=== PATIENT | male | born 1955 | race Two or more races ===

== ENCOUNTER → 2024-09-01 | Outpatient (CLI) | payer OTHER, MEDICARE, SELFPAY ==
[2024-09-01 08:37] LABS: Basophils % (Auto) 1 % (0-2.5); Eosinophils # (Auto) 0.2 Thou/mm3 (0.0-0.5); Eosinophils % (Auto) 2 % (0-10); Hematocrit 50.8 % (41.0-53.0); Hemoglobin 16.5 g/dL (13.5-16.0); Immature Granulocytes % (Auto) 0 % (0-0); Immature Granulocytes Auto 0.02 Thou/mm3 (0.00-0.00); Lymphocytes # (Auto) 1.8 Thou/mm3 (1.0-4.8); Lymphocytes % (Auto) 28 % (10-50); Mean Corpuscular HGB Conc 32.5 g/dl (31.0-37.0); Mean Corpuscular Hemoglobin 27.5 pg (25.0-35.0); Mean Corpuscular Volume 85 fL (80-100); Monocytes # (Auto) 0.5 Thou/mm3 (0.0-0.8); Monocytes % (Auto) 8 % (0-12); Neutrophils # (Auto) 4.1 Thou/mm3 (1.8-7.7); Neutrophils % (Auto) 61 % (37-80); Nucleated Red Blood Cell % 0 /100 WBC (0); Platelet Count 215 Thou/mm3 (140-440); RDW Standard Deviation 44.1 fL (35.1-43.9); Red Blood Count 6.01 Miln/mm3 (4.50-5.90); White Blood Count 6.6 Thou/mm3 (3.8-10.6)
[2024-09-01 08:46] LABS: Glucose Estimated Average 114 mg/dL (80-131); Hemoglobin A1C 5.6 % Hgb (4.8-6.0)
[2024-09-01 09:10] LABS: Alanine Aminotransferase 12 U/L (10-49); Albumin, Serum 4.4 gm/dL (3.4-4.8); Albumin/Globulin Ratio 1.8 (1.2-2.2); Alkaline Phosphatase 83 U/L (46-116); Anion Gap 7 (7-16); Aspartate Amino Transferase 27 U/L (0-34); BUN/Creatinine Ratio 12 Ratio (12-20); Bilirubin,Total 0.9 mg/dL (0.3-1.2); Blood Urea Nitrogen 13 mg/dL (9-23); Calcium 9.7 mg/dL (8.3-10.6); Calcium (Corrected) 9.7 mg/dL (8.5-10.1); Carbon Dioxide 27.7 mMol/L (20.0-31.0); Cardiac Risk Estimate 3.5 RATIO (4.0-6.7); Chloride 106 mMol/L (98-107); Cholesterol 170 mg/dL (132-200); Creatinine (Component) 1.1 mg/dL (0.6-1.3); Globulin 2.4 gm/dL (2.3-3.5); Glucose 96 mg/dL (74-106); HDL Cholesterol 49 mg/dL (40-60); LDL Cholesterol,Calculated 68 mg/dL (0-130); Osmolality,Calculated 281 (275-295); Potassium 4.4 mMol/L (3.4-5.1); Sodium 141 mMol/L (136-145); Total Protein 6.8 gm/dL (5.7-8.2); Triglycerides 263 mg/dL (30-150); Uric Acid 3.8 mg/dL (3.7-9.2); eGFR > 60 See Note
[2024-09-01 09:25] LABS: Carcinoembryonic Antigen 1.1 ng/mL (0.0-5.0); Folate > 24.00 ng/mL (>5.38); Vitamin B12 676 pg/mL (211-911)
[2024-09-01 09:32] LABS: Creatinine MALB Rnd Ur 175 mg/dL (30-125); Microalbumin Creat Ratio 9 mg/gCrea (<30); Microalbumin, Random Urine 16 mg/L (0-300)
[2024-09-01 09:40] LABS: Ferritin 76 ng/mL (10.5-307.3); Total Iron Binding Capacity 328 mcg/dL (250-425)
[2024-09-01 09:52] LABS: Iron 121 mcg/dL (65-175)
[2024-09-21 09:09] LABS: Direct LDL* 95 mg/dL (<100); Testosterone,Total* 346 ng/dL (250-1100)
== END | disposition home or self-care (01) ==
LOC: COPL 08:03
PROVIDERS: PCP Internal Medicine; Referring Provider Specialist; Visit Provider Internal Medicine Hematology
DX: I10 Essential (primary) hypertension (principal); E11.42 Type 2 diabetes mellitus with diabetic polyneuropathy; I48.0 Paroxysmal atrial fibrillation; C18.1 Malignant neoplasm of appendix; E66.9 Obesity, unspecified; M06.9 Rheumatoid arthritis, unspecified; M10.9 Gout, unspecified; M54.50 Low back pain, unspecified; E29.1 Testicular hypofunction
CPT/HCPCS: 36415; 80053; 80061; 82043; 82306; 82378; 82570; 82607; 82728; 82746; 83036; 83540; 83550; 83721; 84403; 84550; 85025

== ENCOUNTER → 2025-02-19 | Outpatient (CLI) | payer OTHER, MEDICARE, SELFPAY ==
--- NOTE | 2025-02-19 15:26 | XR_ITS ---
Examination: AP pelvis single view TECHNIQUE: AP pelvis single view Date and time: February 19, 2025, 1557 hours Comparison January 27, 2016 INDICATIONS: Sacroiliac joint dysfunction FINDINGS: Mild right and moderate left sclerosis about the SI joints Minimal right hip osteoarthritis Moderate left hip osteoarthritis No hip or pelvic fracture IMPRESSION: Mild right and moderate left sacroiliitis Minimal right hip osteoarthritis Moderate left hip osteoarthritis As clinically warranted the SI joints are amenable to CT-guided steroid injection
--- NOTE | 2025-02-19 15:26 | XR_ITS ---
Examination: Left elbow 3 views Technique: Elbow AP, oblique, lateral 3 views Exam date and time: February 19, 2025 1545 hours INDICATIONS: Elbow pain months, diagnosis rheumatoid arthritis FINDINGS: No fracture or dislocation No erosive arthritis IMPRESSION: No fracture or dislocation. Minimal spurring of the coronoid process of the ulna No erosive arthritis
--- NOTE | 2025-02-19 15:26 | XR_ITS ---
Shoulder bilateral, 6 views Technique: Shoulder AP internal rotation, AP external rotation, Y view shoulder Exam date and time :February 19, 2025 at 1545 hours INDICATIONS: Diagnosis rheumatoid arthritis FINDINGS: Mild osteopenia Moderate to advanced narrowing left glenohumeral joint Mild to moderate narrowing right glenohumeral joint Bilateral mild arthritic change acromioclavicular joints No calcific tendinitis No shoulder fractures or dislocations IMPRESSION: Mild osteopenia Moderate to advanced narrowing left glenohumeral joint Mild to moderate narrowing right glenohumeral joint
--- NOTE | 2025-02-19 15:31 | XR_ITS ---
Examination: Sacroiliac joints 4 views TECHNIQUE: AP, MIR, AZERI, AP Carrillo view Date and time: February 19, 2025 1538 hours INDICATIONS: Diagnosis sacroiliac joint dysfunction FINDINGS: Mild sclerosis and erosions right sacroiliac joint Moderate sclerosis and erosions left sacroiliac joint No diastases SI joints Partial visualization transpedicular fusion with disc spacer L4-L5 IMPRESSION: Mild right moderate left sacroiliitis
== END | disposition home or self-care (01) ==
PROVIDERS: PCP Internal Medicine; Referring Provider Specialist; Visit Provider Specialist
DX: M46.1 Sacroiliitis, not elsewhere classified (principal); M16.0 Bilateral primary osteoarthritis of hip; M85.819 Other specified disorders of bone density and structure, unspecified shoulder; M25.812 Other specified joint disorders, left shoulder; M25.811 Other specified joint disorders, right shoulder
CPT/HCPCS: 72170; 72202; 73030; 73080

== ENCOUNTER → 2025-02-28 | Outpatient (CLI) | payer OTHER, MEDICARE, SELFPAY ==
[2025-02-28 08:17] LABS: Basophils % (Auto) 1 % (0-2.5); Eosinophils # (Auto) 0.1 Thou/mm3 (0.0-0.5); Eosinophils % (Auto) 1 % (0-10); Hematocrit 54.2 % (41.0-53.0); Hemoglobin 17.8 g/dL (13.5-16.0); Immature Granulocytes % (Auto) 0 % (0-0); Immature Granulocytes Auto 0.02 Thou/mm3 (0.00-0.00); Lymphocytes # (Auto) 1.6 Thou/mm3 (1.0-4.8); Lymphocytes % (Auto) 18 % (10-50); Mean Corpuscular HGB Conc 32.8 g/dl (31.0-37.0); Mean Corpuscular Hemoglobin 27.1 pg (25.0-35.0); Mean Corpuscular Volume 82 fL (80-100); Monocytes # (Auto) 0.7 Thou/mm3 (0.0-0.8); Monocytes % (Auto) 8 % (0-12); Neutrophils # (Auto) 6.2 Thou/mm3 (1.8-7.7); Neutrophils % (Auto) 72 % (37-80); Nucleated Red Blood Cell % 0 /100 WBC (0); Platelet Count 276 Thou/mm3 (140-440); RDW Standard Deviation 42.7 fL (35.1-43.9); Red Blood Count 6.58 Miln/mm3 (4.50-5.90); White Blood Count 8.6 Thou/mm3 (3.8-10.6)
[2025-02-28 08:25] LABS: Glucose Estimated Average 103 mg/dL (80-131); Hemoglobin A1C 5.2 % Hgb (4.8-6.0)
[2025-02-28 08:36] LABS: Folate 17.99 ng/mL (>5.38); Vitamin B12 549 pg/mL (211-911)
[2025-02-28 08:37] LABS: Alanine Aminotransferase 10 U/L (10-49); Albumin, Serum 4.3 gm/dL (3.4-4.8); Albumin/Globulin Ratio 1.7 (1.2-2.2); Alkaline Phosphatase 77 U/L (46-116); Anion Gap 11 (7-16); BUN/Creatinine Ratio 14 Ratio (12-20); Bilirubin,Total 1.4 mg/dL (0.3-1.2); Blood Urea Nitrogen 15 mg/dL (9-23); C-Reactive Protein 0.5 mg/dL (0.0-0.9); Calcium 8.9 mg/dL (8.3-10.6); Calcium (Corrected) 8.9 mg/dL (8.5-10.1); Carbon Dioxide 25.3 mMol/L (20.0-31.0); Cardiac Risk Estimate 3.4 RATIO (4.0-6.7); Chloride 105 mMol/L (98-107); Cholesterol 144 mg/dL (132-200); Creatinine (Component) 1.1 mg/dL (0.6-1.3); Free T4 (Free Thyroxine) 1.29 ng/dL (0.89-1.76); Globulin 2.5 gm/dL (2.3-3.5); Glucose 100 mg/dL (74-106); HDL Cholesterol 42 mg/dL (40-60); LDL Cholesterol,Calculated 77 mg/dL (0-130); Osmolality,Calculated 282 (275-295); Potassium 4.6 mMol/L (3.4-5.1); Sodium 141 mMol/L (136-145); Thyroid Stimulating Hormone 2.01 uIU/mL (0.55-4.78); Total Protein 6.8 gm/dL (5.7-8.2); Triglycerides 126 mg/dL (30-150); eGFR > 60 See Note
[2025-02-28 09:13] LABS: Collection Type, Urine Clean Catch
[2025-02-28 09:39] LABS: Bilirubin,Urine Negative (Negative); Blood,Urine Trace (Negative); Clarity,Urine Clear (Clear/Hazy); Color,Urine Yellow (Lt Yel-Yel); Glucose, Urine 4+ (Negative); Ketones,Urine Trace (Negative); Leukocyte Esterase,Urine Negative (Negative); Nitrite,Urine Negative (Negative); PH,Urine 5.5 (5.0-7.0); Protein,Urine Negative (Neg - Trace); RBC,Urine 1 /hpf (0-3); Squamous Epithelial Cell,Urine < 1 /hpf (0-5); Urobilinogen,Urine Negative mg/dL (0.0-1.0); WBC,Urine < 1 /hpf (0-5)
[2025-02-28 09:44] LABS: Creatinine MALB Rnd Ur 116 mg/dL (30-125); Microalbumin Creat Ratio 6 mg/gCrea (<30); Microalbumin, Random Urine 7 mg/L (0-300)
[2025-02-28 15:24] LABS: RA Screen Positive (Negative)
[2025-03-05 07:14] LABS: CCP Antibody (IgG)* <16 Units
== END | disposition home or self-care (01) ==
PROVIDERS: PCP Specialist; Referring Provider Specialist; Visit Provider Internal Medicine
DX: I10 Essential (primary) hypertension (principal); E78.5 Hyperlipidemia, unspecified; G47.33 Obstructive sleep apnea (adult) (pediatric); I48.0 Paroxysmal atrial fibrillation; I25.10 Atherosclerotic heart disease of native coronary artery without angina pectoris; M06.9 Rheumatoid arthritis, unspecified; M10.9 Gout, unspecified; N40.1 Benign prostatic hyperplasia with lower urinary tract symptoms; E11.42 Type 2 diabetes mellitus with diabetic polyneuropathy; C18.1 Malignant neoplasm of appendix; E66.9 Obesity, unspecified
CPT/HCPCS: 36415; 80053; 80061; 81001; 82043; 82570; 82607; 82746; 83036; 84439; 84443; 85025; 86140; 86200; 86430; 86431

== ENCOUNTER → 2025-06-29 | Outpatient (CLI) | payer MEDICARE, SELFPAY ==
--- NOTE | 2025-06-29 16:45 | XR_ITS ---
EXAMINATION: Lumbar spine 7 views TECHNIQUE: AP, lateral, coned lateral lower lumbar spine, standing lateral flexion, standing lateral extension, RPO LPO lumbar spine 7 views Date and time: June 29, 2025, 164 hours, comparison 2008 INDICATIONS: Patient fell 10 days ago with injury of the lower back, lower back pain FINDINGS: Status post transpedicular lumbar fusion with disc spacers L3-S1 The disc spacer at the L3-L4 level projects 8 mm posterior to the L3 vertebral body Alignment of the vertebral bodies is satisfactory There is no significant range of motion between flexion and extension IMPRESSION: Status post lumbar fusion L3-S1 with satisfactory alignment The disc spacer at the L3-4 level projects 8 mm posterior to the L3 vertebral body
== END | disposition home or self-care (01) ==
PROVIDERS: PCP Surgery; Referring Provider Surgery; Visit Provider Surgery
DX: M43.27 Fusion of spine, lumbosacral region (principal); S39.92XA Unspecified injury of lower back, initial encounter; W19.XXXA Unspecified fall, initial encounter
CPT/HCPCS: 72114

== ENCOUNTER → 2025-08-30 | Outpatient (CLI) | payer MEDICARE, SELFPAY ==
[2025-08-30 08:47] LABS: Basophils # (Auto) 0.0 Thou/mm3 (0.0-0.2); Basophils % (Auto) 1 % (0-2.5); Eosinophils # (Auto) 0.1 Thou/mm3 (0.0-0.5); Eosinophils % (Auto) 2 % (0-10); Hematocrit 55.6 % (41.0-53.0); Hemoglobin 17.6 g/dL (13.5-16.0); Immature Granulocytes Auto 0.01 Thou/mm3 (0.00-0.00); Lymphocytes # (Auto) 1.7 Thou/mm3 (1.0-4.8); Lymphocytes % (Auto) 30 % (10-50); Mean Corpuscular HGB Conc 31.7 g/dl (31.0-37.0); Mean Corpuscular Hemoglobin 26.9 pg (25.0-35.0); Mean Corpuscular Volume 85 fL (80-100); Monocytes # (Auto) 0.5 Thou/mm3 (0.0-0.8); Monocytes % (Auto) 8 % (0-12); Neutrophils # (Auto) 3.4 Thou/mm3 (1.8-7.7); Neutrophils % (Auto) 59 % (37-80); Nucleated Red Blood Cell # 0.00 Thou/mm3 (0.00-0.00); Nucleated Red Blood Cell % 0 /100 WBC (0); Platelet Count 201 Thou/mm3 (140-440); RDW Standard Deviation 58.0 fL (35.1-43.9); Red Blood Count 6.55 Miln/mm3 (4.50-5.90); White Blood Count 5.7 Thou/mm3 (3.8-10.6)
[2025-08-30 08:52] LABS: Glucose Estimated Average 114 mg/dL (80-131); Hemoglobin A1C 5.6 % Hgb (4.8-6.0)
[2025-08-30 08:53] LABS: Creatinine MALB Rnd Ur 79 mg/dL (30-125); Microalbumin Creat Ratio 6 mg/gCrea (<30); Microalbumin, Random Urine 5 mg/L (0-300)
[2025-08-30 09:26] LABS: Sed Rate (ESR) 8 mm/hr (0-20)
[2025-08-30 09:29] LABS: Alanine Aminotransferase 13 U/L (10-49); Albumin, Serum 4.4 gm/dL (3.4-4.8); Albumin/Globulin Ratio 1.5 (1.2-2.2); Alkaline Phosphatase 73 U/L (46-116); Anion Gap 11 (7-16); Aspartate Amino Transferase 28 U/L (0-34); BUN/Creatinine Ratio 15 Ratio (12-20); Bilirubin,Total 0.7 mg/dL (0.3-1.2); Blood Urea Nitrogen 16 mg/dL (9-23); C-Reactive Protein < 0.5 mg/dL (0.0-0.9); Calcium 9.3 mg/dL (8.3-10.6); Calcium (Corrected) 9.3 mg/dL (8.5-10.1); Carbon Dioxide 27.7 mMol/L (20.0-31.0); Cardiac Risk Estimate 1.9 RATIO (4.0-6.7); Chloride 107 mMol/L (98-107); Cholesterol 103 mg/dL (132-200); Creatinine (Component) 1.1 mg/dL (0.6-1.3); Globulin 3.0 gm/dL (2.3-3.5); Glucose 104 mg/dL (74-106); HDL Cholesterol 55 mg/dL (40-60); LDL Cholesterol,Calculated 29 mg/dL (0-130); Osmolality,Calculated 291 (275-295); Potassium 4.4 mMol/L (3.4-5.1); Sodium 146 mMol/L (136-145); Total Protein 7.4 gm/dL (5.7-8.2); Triglycerides 97 mg/dL (30-150); Uric Acid 3.9 mg/dL (3.7-9.2); eGFR > 60 See Note
[2025-08-30 09:32] LABS: Hepatitis A Antibody IgM Non Reactive (Non React); Hepatitis B Core Antibody IgM Non Reactive (Non React); Hepatitis B Surface Antigen Non Reactive (Non React); Hepatitis C Antibody Non Reactive (Non React)
[2025-08-30 10:09] LABS: RA Screen Positive (Negative)
[2025-08-30 11:37] LABS: Rheumatoid Factor Titer 1:64
[2025-09-05 06:24] LABS: ANA Screen, IFA NEGATIVE (NEGATIVE); Testosterone,Total* 241 ng/dL (250-1100)
== END | disposition home or self-care (01) ==
PROVIDERS: PCP Internal Medicine; Referring Provider Specialist; Visit Provider Family Medicine
DX: M05.9 Rheumatoid arthritis with rheumatoid factor, unspecified (principal); M10.9 Gout, unspecified; E34.9 Endocrine disorder, unspecified; I48.19 Other persistent atrial fibrillation; Z11.59 Encounter for screening for other viral diseases; E11.9 Type 2 diabetes mellitus without complications
CPT/HCPCS: 36415; 80053; 80061; 80074; 82043; 82570; 83036; 84403; 84550; 85025; 85652; 86038; 86140; 86430; 86431